=== PATIENT | male | born 1970 | race Caucasian/White ===

== ENCOUNTER 2019-02-15 13:46 | Emergency (ER) | payer MEDICARE ==
[~2019-02-15 13:46] MED LIST: ISOVUE-370 76%-LOCM 1 ML ONE
[2019-02-15 14:53] LABS: #Basophils 0.1 thou/uL (0.0-0.2); #Eosinphils 0.2 thou/uL (0.0-0.7); #Lymphocytes 2.1 thou/uL (1.20-3.40); #Monocytes 0.7 thou/uL (0.11-0.59); #Neutrophils 6.7 thou/uL (1.40-6.50); %Basophils 0.8 % (0.0-1.0); %Eosinophils 1.7 % (0.0-10.0); %Lymphocytes 21.6 % (21.0-51.0); %Monocytes 7.1 % (0.0-10.0); %Neutrophils 68.7 % (42.0-75.0); Mean Corpuscular HGB CONC 33.2 g/dL (32.0-36.0); Mean Corpuscular Hemoglobin 31.4 pg (27.0-31.0); Mean Corpuscular Volume 94.3 fL (78.0-98.0); Mean Platelet Volume 6.9 fL (7.4-10.4); Platelet Count 338 thou/uL (130-400); RBC Distribution Width 11.3 % (11.5-14.5); Red Blood Cell (RBC) Count 5.11 mill/uL (4.70-6.10); White Blood Cell (WBC) Count 9.8 thou/uL (4.8-10.8)
[2019-02-15 15:22] LABS: ALT (SGPT) 11 U/L (8-55); AST (SGOT) 16 U/L (5-34); Albumin 4.2 g/dL (3.5-5.0); Alkaline Phosphatase 78 U/L (40-150); Anion Gap 11 mmol/L (10-20); BUN (Urea Nitrogen) 13 mg/dL (8.9-20.6); Bilirubin, Total 0.4 mg/dL (0.2-1.2); Calc. Creatinine Clearance 0 mL/min (70-130); Calcium 9.8 mg/dL (7.8-10.44); Carbon Dioxide 30 mmol/L (22-29); Chloride 101 mmol/L (98-107); Estimated GFR-MDRD 70; Globulin 2.8 g/dL (2.4-3.5); Glucose 84 mg/dL (70-105); Lipase 48 U/L (8-78); Potassium 4.1 mmol/L (3.5-5.1); Sodium 138 mmol/L (136-145)
[2019-02-15] MEDS ORDERED: Ketorolac Tromethamine 30 MG/ML VIAL ONE (16:04)
[2019-02-15] MEDS ORDERED: Ondansetron PF 4 MG/2 ML Vial ONE (16:04)
--- NOTE | 2019-02-15 16:24 | CT ---
CT chest with IV contrast CT abdomen and pelvis with IV contrast HISTORY: Chest and abdomen pain. Abnormal outside CT exam. FINDINGS: Tiny nonspecific subpleural nodules at the right anterolateral lung base. No pleural fluid or mediastinal adenopathy. Gallbladder surgically absent. Within the posterior segment right liver lobe, a very subtle oval 0.5 cm low density lesion is present. No enlarged lymph nodes or free fluid. Extensive postoperative changes of the abdomen and pelvis. Within the lateral aspect of the right kim ac bone, a 0.8 cm sclerotic lesion is favored to represent a bone island. Degenerative changes thoracolumbar spine. IMPRESSION: No aggressive abnormalities are demonstrated to explain abdominal pain. Tiny nonspecific low-density lesion within the posterior segment right liver lobe. Too small to reginaldo cterize. Very probably benign. At the most, a follow-up CT in 9-12 months could be performed to evaluate for stability. Incidental-type findings as detailed above.
[2019-02-15 16:34] LABS: Bilirubin Negative (Negative); Blood, Urine Negative (Negative); Clarity Clear (Clear); Glucose, Urine (Dipstick) Normal (Negative); Leukocyte Negative Leu/uL (Negative); Nitrite Negative (Negative); Protein, Urine (Dipstick) Negative (Neg-Trace); Urobilinogen Normal mg/dL (Less than 2)
[2019-02-15] MEDS ORDERED: Acetaminophen 500 MG TAB ONE (17:48)
== END 2019-02-15 18:04 | disposition home or self-care (01) ==
LOC: ERS 13:46
DX: R10.9 Unspecified abdominal pain (principal); K03.81 Cracked tooth; K02.9 Dental caries, unspecified; R11.0 Nausea; E78.5 Hyperlipidemia, unspecified; I10 Essential (primary) hypertension; F32.9 Major depressive disorder, single episode, unspecified; F41.9 Anxiety disorder, unspecified; F42.9 Obsessive-compulsive disorder, unspecified; Z79.82 Long term (current) use of aspirin; Z79.899 Other long term (current) drug therapy
CPT/HCPCS: 36415; 71260; 74177; 80053; 81003; 83690; 85025; 96361; 96374; 96375; J1885; J2405; Q9966